=== PATIENT | female | born 1980 | race Caucasian/White ===

== ENCOUNTER → 2018-11-11 | Day surgery (SDC) | payer BC ==
[~2018-11-11] VITALS: Ht 175.3 cm; Wt 68.0 kg
[2018-11-11] VITALS (9 sets, daily range): BP systolic 128–146; BP diastolic 76–92
[~2018-11-11] MED LIST: BSS 15ml BTL ONE; BSS 500ml btl ONE; Bupivacaine 0.75% 30ml vial INJ ONE; Carbachol 0.01% Op Soln 1.5ml vial ONE; Cyclopentolate 1% Opth Sol 2ml LEFT EYE ONE; Cyclopentolate 1% Opth Sol 2ml ONE; Dexamethasone 4mg/ml vial ONE; DiphenhydrAMINE 50mg/ml Inj IVP PRN; EPINEPHrine 1mg/1ml Amp ONE; Goniotaire 2.5% Opth Soln - 15ml ONE; IMITREX50 MG ORAL; Kenalog-40 1ml Vial ONE; Ketorolac 30mg Inj ONE; LR 1000ml 1,000 ML IVLG SCH; LR 1000ml ONE; Lidocaine 1% MPF 10mg/ml 5ml ONE; Lidocaine 2% MPF 5ml Vial INJ ONE; Maxitrol Opth Oint 3.5gm ONE; Meperidine 50mg/ml Inj(FOR RIGORS ONLY) IV PRN; Metoclopramide 10mg/2ml Inj IVP PRN; Midazolam 2mg/2ml Inj ONE; NS Irrig 1000ml ONE; Neosporin Oph Soln 5ml Btl ONE; Phenylephrine 2.5% Op 2ml Soln LEFT EYE ONE; Phenylephrine 2.5% Op 2ml Soln ONE; Povidone-Iodine 5% opth solution ONE; Pred Forte 1% Opth Susp 1ml ONE; Proparacaine 0.5% Opth Soln 15ml LEFT EYE ONE; Proparacaine 0.5% Opth Soln 15ml ONE; Propofol 200mg/20ml IV ONE; Sodium Hyaluronate 10 mg/ml 0.85ml ONE; Sterile Water Irrig 1000ml IRRIG ONE; Tetracaine 0.5% Opth 4ml Soln ONE; TransDerm Scop 1mg/72HR Patch TDERMAL ONE; Tropicamide 1% Opth 15ml Soln LEFT EYE ONE; Tropicamide 1% Opth 15ml Soln ONE; acetaZOLAMIDE 500mg Inj ONE; fentaNYL 100 mcg/2 mL IV ONE
[2018-11-11 17:18] LABS: EOSINOPHILS % (AUTO) 0.4 % (0.0-3.0); HEMATOCRIT 44.4 % (37.0-47.0); HEMOGLOBIN 14.7 G/DL (12.0-16.0); LYMPHOCYTES % (AUTO) 15.3 % (20.0-45.0); MEAN CORPUSCULAR VOLUME 91 FL (80-99); MONOCYTES % (AUTO) 6.3 % (1.0-10.0); NEUTROPHILS % (AUTO) 77.1 % (45.0-75.0); PLATELET COUNT 300 K/UL (150-450); RED BLOOD COUNT 4.87 M/UL (4.20-5.40); RED CELL DISTRIBUTION WIDTH 11.2 % (11.6-14.8); WHITE BLOOD COUNT 9.7 K/UL (4.8-10.8)
[2018-11-11 17:29] LABS: ANION GAP 12 mmol/L (5-15); BLOOD UREA NITROGEN 10 mg/dL (7-18); CALCIUM 9.4 MG/DL (8.5-10.1); CARBON DIOXIDE 26 MMOL/L (21-32); CHLORIDE 104 MMOL/L (98-107); CREATININE 0.9 MG/DL (0.55-1.30); POTASSIUM 3.4 MMOL/L (3.5-5.1); SODIUM 142 MMOL/L (136-145)
--- NOTE | 2018-11-11 18:00 | NUR ---
ED Nurse Note: RADHA Wynn took patient downstairs for surgery. all belongings sent with patient. pre op checklist done
--- NOTE | 2018-11-11 18:14 | Emergency Room Report ---
History of Present Illness General Chief Complaint: General Complaint Source: Patient Present Illness HPI Patient presents emergency department today complaining of visual change in the left eye. Patient was recently diagnosed with an attachment on the left eye. She will underwent surgery unfortunately the surgery was unsuccessful. The retinal detachment appears to be not improving. Patient saw her hand mica plate layer today and was sent to the emergency department for further evaluation and possible emergency surgery. Patient denies any other injuries. No other complaints are noted. Symptoms noted to be [id number]. No other modifying factors. No other associated signs and symptoms. No other complaints were noted. Allergies: Coded Allergies: No Known Allergies (Unverified , 11/11/18) Patient History Past Medical History: none Past Surgical History: none Pertinent Family History: none Social History: Denies: smoking, alcohol use, drug use Reviewed Nursing Documentation: PMH: Agreed; PSxH: Agreed Nursing Documentation-PMH Past Medical History: No Stated History Review of Systems All Other Systems: negative except mentioned in HPI Physical Exam Vital Signs Date Time Temp Pulse Resp B/P (MAP) Pulse Ox O2 Delivery O2 Flow Rate FiO2 11/11/18 16:37 98.4 88 17 141/86 98 Room Air Sp02 EP Interpretation: reviewed, normal General Appearance: normal inspection, well appearing, no apparent distress, alert Head: atraumatic Eyes: bilateral eye normal inspection, bilateral eye PERRL, bilateral eye EOMI ENT: normal ENT inspection, hearing grossly normal, normal voice Neck: normal inspection, full range of motion, supple, no bony tend Respiratory: normal inspection, lungs clear, normal breath sounds, no respiratory distress, no retraction, no wheezing Cardiovascular #1: regular rate, rhythm, no edema Gastrointestinal: normal inspection, normal bowel sounds, non tender, soft, no guarding, no hernia Genitourinary: no CVA tenderness Musculoskeletal: normal inspection, back normal, normal range of motion Neurologic: normal inspection, alert, responsive, speech normal Psychiatric: normal inspection, judgement/insight normal, mood/affect normal Skin: normal inspection, normal color, no rash Medical Decision Making Diagnostic Impression: Primary Impression: Retinal detachment ER Course Patient presents emergency department today complaining of left eye decreased vision. Differential considerations include retinal attachment, infectious process, glaucoma. Patient exam history is consistent with retinal detachment. Case was discussed with Dr. Parrish. He came to the emergency department evaluated patient. Patient will go to emergency surgery for treatment of retinal attachment. Labs Test 11/11/18 16:55 White Blood Count 9.7 K/UL (4.8-10.8) Red Blood Count 4.87 M/UL (4.20-5.40) Hemoglobin 14.7 G/DL (12.0-16.0) Hematocrit 44.4 % (37.0-47.0) Mean Corpuscular Volume 91 FL (80-99) Mean Corpuscular Hemoglobin 30.1 PG (27.0-31.0) Mean Corpuscular Hemoglobin Concent 33.0 G/DL (32.0-36.0) Red Cell Distribution Width 11.2 % (11.6-14.8) Platelet Count 300 K/UL (150-450) Mean Platelet Volume 7.4 FL (6.5-10.1) Neutrophils (%) (Auto) 77.1 % (45.0-75.0) Lymphocytes (%) (Auto) 15.3 % (20.0-45.0) Monocytes (%) (Auto) 6.3 % (1.0-10.0) Eosinophils (%) (Auto) 0.4 % (0.0-3.0) Basophils (%) (Auto) 1.0 % (0.0-2.0) Prothrombin Time 10.7 SEC (9.30-11.50) Prothromb Time International Ratio 1.0 (0.9-1.1) Activated Partial Thromboplast Time 25 SEC (23-33) Sodium Level 142 MMOL/L (136-145) Potassium Level 3.4 MMOL/L (3.5-5.1) Chloride Level 104 MMOL/L (98-107) Carbon Dioxide Level 26 MMOL/L (21-32) Anion Gap 12 mmol/L (5-15) Blood Urea Nitrogen 10 mg/dL (7-18) Creatinine 0.9 MG/DL (0.55-1.30) Estimat Glomerular Filtration Rate > 60 mL/min (>60) Glucose Level 108 MG/DL (74-106) Calcium Level 9.4 MG/DL (8.5-10.1) Last Vital Signs Date Time Temp Pulse Resp B/P (MAP) Pulse Ox O2 Delivery O2 Flow Rate FiO2 11/11/18 17:56 98.3 71 18 128/76 98 Room Air Status: improved Disposition: ADMITTED INPATIENT Condition: Stable Referrals: NON PHYSICIAN (PCP) Aldair Powell MD Nov 11, 2018 18:14
--- NOTE | 2018-11-11 18:28 | Pre-Procedure Note/Attestation ---
Pre-Procedure Note/Attestation Complete Prior to Procedure Planned Procedure: left Procedure Narrative: RD repair OS SB/Cryo/Gas OS Indications for Procedure Pre-Operative Diagnosis: RRD OS Attestation I attest that I discussed the nature of the procedure; its benefits; risks and complications; and alternatives (and the risks and benefits of such alternatives ), prior to the procedure, with the patient (or the patient's legal sales and service representative). I attest that, if there was a reasonable possibility of needing a blood transfusion, the patient (or the patient's legal sales and service representative) was given the [facility] standardized written summary, pursuant to the Ari Guerita Blood Safety Act ([place] Health and Safety Code # 1645, as amended). I attest that I re-evaluated the patient just prior to the surgery and that there has been no change in the patient's H&P, except as documented below: Armando Parrish M.D., MD Nov 11, 2018 18:28
--- NOTE | 2018-11-11 18:34 | Operative Note - PDOC ---
Operative Note Operative Note Pre-op Diagnosis: RRD OS Procedure: SB/Cryo/Gas OS (SF6) Post-op Diagnosis: Same Anesthesia: general Specimen: none Complications: none Condition: stable Estimated Blood Loss: minimal Drains: none Implant(s) used?: Yes - SB/Sleeve Indications for Procedure [place] [facility] [place] Diagnosis: Retinal detachment, macula-sparing, superotemporal, LEFT EYE Post-operative Diagnosis: Same Procedure: Scleral buckle (41 band, 72 sleeve), cryopexy, injection of SF6 gas (20%), LEFT EYE Surgeon: Armando Parrish M.D. Anesthesia: General anesthesia Complications: None Indications for the procedure: The patient has superior and progressive macula threatening retinal detachment and presents for urgent surgery after review of the risks, benefits, alternative and signing informed consent into the medical chart. Description of Procedure Procedure performed: The patient was met in the pre-op area where informed consent was reviewed. The operative eye was verified, marked and dilated. The patient was transferred to the operative suite, where cardiopulmonary monitoring was established and general anesthesia was administered without complications. The eye was prepped and draped in sterile ophthalmic fashion. A lid speculum was placed. Under direct visualization, the conjunctiva was opened and the quadrants were dissected. The rectus muscles were isolated and hooked with silk sutures. The quadrants were inspected and no scleral defects were noted. Cryopexy was applied to the areas of retinal tears; large temporal break and inferonasal small possible break; view through opacified 24/28D lens was limiting. The remainder of the breaks were adequately treated with laser previously. Then the 41 band was encircled around the globe with its ends attached in the superonasal quadrant with the 72 sleeve. The buckle was sutured to the sclera with 5-0 nylon sutures at 4mm posterior to the muscle insertions in all 4 quadrants. The buckle was pulled flush against the globe, then 10mm beyond flush; there was anterior migration of the buckle due to the 8-0 nylon suture. The anterior chamber was tapped to reduce the intraocular pressure. The optic nerve was notably well perfused. Visualization of the buckle indentation was adequate with support of the breaks; there was mild fish-mouth of the large break, but the buckle was not re-positioned rather an additional indentation element was placed radially. The buckle ends were trimmed. SF6 gas was injection in the nasal pars plana and repeat AC tap was performed. View of the gas bubble confirmed appropriate amount and location; optic nerve perfusion was confirmed. The eye maintained normal intraocular pressure. The stay sutures were removed, the conjunctiva was repositioned and closed with 5-0 plain gut sutures. Subconjunctival vancomycin and dexamethasone were administered. The lid speculum was removed. The eye was cleaned of prep and drape. Atropine drop and Maxitrol ointment was applied. A pressure patch was placed. The patient was turned over to the anesthesia team, extubated and transferred in stable condition to the PACU. Armando Parrish M.D., MD Nov 11, 2018 18:34
--- NOTE | 2018-11-11 19:00 | Anethesia Preoperative Eval ---
Anesthesia Pre-op PMH/ROS General Date of Evaluation: Nov 11, 2018 Time of Evaluation: 17:18 Anesthesiologist: Collins ASA Score: ASA 2 Mallampati Score Class I : Soft palate, uvula, fauces, pillars visible Class II: Soft palate, uvula, fauces visible Class III: Soft palate, base of uvula visible Class IV: Only hard plate visible Mallampati Classification: Class II Surgeon: Con Diagnosis: L eye retinal detouchment Surgical Procedure: L eye scleral buckle Anesthesia History: PONV Family History: no anesthesia problems Allergies: Coded Allergies: No Known Allergies (Unverified , 11/11/18) Medications: see eMAR Patient NPO?: Yes NPO Date: Nov 11, 2018 NPO Time: 09:00 Past Medical History Cardiovascular: Denies: HTN, CAD, ME, valve dz, arrhythmia, other Pulmonary: Denies: asthma, COPD, YOBANY, other Gastrointestinal/Genitourinary: Reports: GERD - mild; Denies: CRI, ESRD, other Neurologic/Psychiatric: Reports: other - migraine headacheks; Denies: dementia, CVA, depression/anxiety, TIA Endocrine: Denies: DM, hypothyroidism, steroids, other HEENT: Denies: cataract (L), cataract (R), glaucoma, [place] (L), [place] (R), other Hematology/Immune: Denies: anemia, DVT, bleeding disorder, other Musculoskeletal/Integumentary: Denies: OA, RA, DJD, DDD, edema, other PMH Narrative: as above PSxH Narrative: Dental Sx Anesthesia Pre-op Phys. Exam Physician Exam Last Vital Signs Date Time Temp Pulse Resp B/P (MAP) Pulse Ox O2 Delivery O2 Flow Rate FiO2 11/11/18 17:56 98.3 71 18 128/76 98 Room Air Constitutional: NAD Neurologic: CN 2-12 intact Cardiovascular: RRR, no M/R/G Respiratory: CTA Gastrointestinal: S/NT/ND Airway Exam Mallampati Score: Class II MO: full Neck: flexible ROM: full Teeth: intact Dentures: no upper, no lower Anesthesia Pre-op A/P Labs Hematology Test 11/11/18 16:55 White Blood Count 9.7 K/UL (4.8-10.8) Red Blood Count 4.87 M/UL (4.20-5.40) Hemoglobin 14.7 G/DL (12.0-16.0) Hematocrit 44.4 % (37.0-47.0) Mean Corpuscular Volume 91 FL (80-99) Mean Corpuscular Hemoglobin 30.1 PG (27.0-31.0) Mean Corpuscular Hemoglobin Concent 33.0 G/DL (32.0-36.0) Red Cell Distribution Width 11.2 % (11.6-14.8) L Platelet Count 300 K/UL (150-450) Mean Platelet Volume 7.4 FL (6.5-10.1) Neutrophils (%) (Auto) 77.1 % (45.0-75.0) H Lymphocytes (%) (Auto) 15.3 % (20.0-45.0) L Monocytes (%) (Auto) 6.3 % (1.0-10.0) Eosinophils (%) (Auto) 0.4 % (0.0-3.0) Basophils (%) (Auto) 1.0 % (0.0-2.0) Coagulation Test 11/11/18 16:55 Prothrombin Time 10.7 SEC (9.30-11.50) Prothromb Time International Ratio 1.0 (0.9-1.1) Activated Partial Thromboplast Time 25 SEC (23-33) Chemistry Test 11/11/18 16:55 Sodium Level 142 MMOL/L (136-145) Potassium Level 3.4 MMOL/L (3.5-5.1) L Chloride Level 104 MMOL/L (98-107) Carbon Dioxide Level 26 MMOL/L (21-32) Anion Gap 12 mmol/L (5-15) Blood Urea Nitrogen 10 mg/dL (7-18) Creatinine 0.9 MG/DL (0.55-1.30) Estimat Glomerular Filtration Rate > 60 mL/min (>60) Glucose Level 108 MG/DL (74-106) H Calcium Level 9.4 MG/DL (8.5-10.1) Studies Pre-op Studies: EKG - NSR Risk Assessment & Plan Assessment: ASA 2 Plan: GA with LMA PONV prevention Status Change Before Surgery: No Pre-Antibiotics Drug: none Jovani Guadalupe MD Nov 11, 2018 19:00
--- NOTE | 2018-11-11 20:59 | Immediate Post-Op Evaluation ---
Immediate Post-Op Evalulation Immediate Post-Op Evalulation Procedure: L eye scleral buckle, cryotherapy Date of Evaluation: Nov 11, 2018 Time of Evaluation: 20:57 IV Fluids: 600 Blood Products: none Estimated Blood Loss: min Urinary Output: none Blood Pressure Systolic: 136 Blood Pressure Diastolic: 72 Pulse Rate: 86 Respiratory Rate: 20 O2 Sat by Pulse Oximetry: 99 Temperature (Fahrenheit): 97.6 Pain Score (1-10): 1 Nausea: No Vomiting: No Complications none Patient Status: awake, patent, none Hydration Status: adequate Jovani Guadalupe MD Nov 11, 2018 20:59
--- NOTE | 2018-11-11 21:55 | NUR ---
DISCHARGE HOME FULLY AWAKE ALERT AMBULATORY . ADVICE TO KEEP FACE DOWN TO C[facility] OF EARTH AND TO SLEEP ON RT SIDE FACE DOWN TONITE PT UNDERSTOOD AND ACKNOWLEDGED. DISCHARGE INSTRUCTIONS GIVEN AND SIGNED UNDERSTOOD AND ACKNOWLEDGED . ALL BELONGINGS ACCOUNTED FOR . IV DCD DRESSING DRY AND INTACT NO C/O PAIN
== END | disposition home or self-care (01) ==
LOC: EDBEDREQ 17:00 → EMR 17:13 → SUR 17:50
DX: H33.22 Serous retinal detachment, left eye (principal); K21.9 Gastro-esophageal reflux disease without esophagitis
CPT/HCPCS: 36415; 67107; 80048; 85025; 85610; 85730; 93005; 99284; J1100; J1120; J1885; J2175; J2250; J2405; J2704; J2765; J3010; J3370; J3490; 94003; 94150

== ENCOUNTER 2018-11-25 09:16 | Day surgery (SDC) | payer BC ==
[2018-11-25] VITALS (8 sets, daily range): BP systolic 120–132; BP diastolic 68–81
[~2018-11-25] VITALS: Ht 177.8 cm; Wt 70.3 kg
[~2018-11-25 09:16] MED LIST changes: -BSS 15ml BTL ONE; -BSS 500ml btl ONE; -Bupivacaine 0.75% 30ml vial INJ ONE; -Carbachol 0.01% Op Soln 1.5ml vial ONE; -Cyclopentolate 1% Opth Sol 2ml LEFT EYE ONE; -Cyclopentolate 1% Opth Sol 2ml ONE; -Dexamethasone 4mg/ml vial ONE; -DiphenhydrAMINE 50mg/ml Inj IVP PRN; -EPINEPHrine 1mg/1ml Amp ONE; -Goniotaire 2.5% Opth Soln - 15ml ONE; -Kenalog-40 1ml Vial ONE; -Ketorolac 30mg Inj ONE; -LR 1000ml 1,000 ML IVLG SCH; -LR 1000ml ONE; -Lidocaine 1% MPF 10mg/ml 5ml ONE; -Lidocaine 2% MPF 5ml Vial INJ ONE; -Maxitrol Opth Oint 3.5gm ONE; -Meperidine 50mg/ml Inj(FOR RIGORS ONLY) IV PRN; -Metoclopramide 10mg/2ml Inj IVP PRN; -Midazolam 2mg/2ml Inj ONE; -NS Irrig 1000ml ONE; -Neosporin Oph Soln 5ml Btl ONE; -Phenylephrine 2.5% Op 2ml Soln LEFT EYE ONE; -Phenylephrine 2.5% Op 2ml Soln ONE; -Povidone-Iodine 5% opth solution ONE; -Pred Forte 1% Opth Susp 1ml ONE; -Proparacaine 0.5% Opth Soln 15ml LEFT EYE ONE; +Proparacaine 0.5% Opth Soln 15ml LEFT EYE SCH; -Proparacaine 0.5% Opth Soln 15ml ONE; -Propofol 200mg/20ml IV ONE; -Sodium Hyaluronate 10 mg/ml 0.85ml ONE; -Sterile Water Irrig 1000ml IRRIG ONE; -Tetracaine 0.5% Opth 4ml Soln ONE; -TransDerm Scop 1mg/72HR Patch TDERMAL ONE; -Tropicamide 1% Opth 15ml Soln LEFT EYE ONE; -Tropicamide 1% Opth 15ml Soln ONE; -acetaZOLAMIDE 500mg Inj ONE; -fentaNYL 100 mcg/2 mL IV ONE
[2018-11-25] MEDS ORDERED: Cyclopentolate 1% Opth Sol 2ml ONE (09:42)
[2018-11-25] MEDS ORDERED: Phenylephrine 2.5% Op 2ml Soln ONE (09:42)
[2018-11-25] MEDS ORDERED: Tropicamide 1% Opth 15ml Soln ONE (09:42)
[2018-11-25] MEDS ORDERED: Proparacaine 0.5% Opth Soln 15ml ONE (09:42)
[2018-11-25] MEDS: Tropicamide 1% Opth 15ml Soln LEFT EYE SCH ×3 (09:56→10:11)
[2018-11-25] MEDS: Cyclopentolate 1% Opth Sol 2ml LEFT EYE SCH ×3 (09:57→10:11)
[2018-11-25] MEDS: Phenylephrine 2.5% Op 2ml Soln LEFT EYE SCH ×3 (09:57→10:11)
[2018-11-25] MEDS ORDERED: MULTIVITAMINS1 EAC2 ORAL (10:00)
[2018-11-25] MEDS ORDERED: MAGNESIUM30 M1 PO (10:01)
[2018-11-25] MEDS ORDERED: Goniotaire 2.5% Opth Soln - 15ml ONE (10:43)
[2018-11-25] MEDS ORDERED: Maxitrol Opth Oint 3.5gm ONE (10:43)
[2018-11-25] MEDS ORDERED: Lidocaine 2% MPF 5ml Vial INJ ONE (10:43)
[2018-11-25] MEDS ORDERED: Pred Forte 1% Opth Susp 1ml ONE (10:43)
[2018-11-25] MEDS ORDERED: Kenalog-40 1ml Vial ONE (10:43)
[2018-11-25] MEDS ORDERED: BSS 15ml BTL ONE (10:44)
[2018-11-25] MEDS ORDERED: Tetracaine 0.5% Opth 4ml Soln ONE (10:44)
[2018-11-25] MEDS ORDERED: Acetylcholine Injection (OR) ONE (10:44)
[2018-11-25] MEDS ORDERED: BSS 500ml btl ONE (10:44)
[2018-11-25] MEDS ORDERED: Bupivacaine 0.75% 30ml vial INJ ONE (10:44)
[2018-11-25] MEDS ORDERED: Sodium Hyaluronate 14 mg/ml 0.85ml ONE (10:45)
[2018-11-25] MEDS ORDERED: EPINEPHrine 1mg/1ml Amp ONE (10:45)
[2018-11-25] MEDS ORDERED: Povidone-Iodine 5% opth solution ONE (10:46)
[2018-11-25] MEDS ORDERED: Dexamethasone 4mg/ml vial ONE (10:50)
[2018-11-25] MEDS ORDERED: Indocyanine Green 25mg Inj INJ ONE (11:00)
[2018-11-25] MEDS ORDERED: LR 1000ml 1,000 ML IVLG SCH ×2 (11:06)
[2018-11-25] MEDS ORDERED: Atropine Sulfate 0.4mg/ml inj IVP PRN ×2 (11:15)
[2018-11-25] MEDS ORDERED: HYDROcodone/Acetamin 7.5/325 tab ORAL PRN ×2 (11:15)
[2018-11-25] MEDS ORDERED: Metoclopramide 10mg/2ml Inj IVP PRN ×2 (11:15)
[2018-11-25] MEDS ORDERED: HYDROcodone/Acetamin 5/325 tab ORAL PRN ×2 (11:15)
[2018-11-25] MEDS ORDERED: Ketorolac 30mg Inj IV PRN ×4 (11:15)
[2018-11-25] MEDS ORDERED: DiphenhydrAMINE 50mg/ml Inj IVP PRN ×2 (11:15)
[2018-11-25] MEDS ORDERED: LORazepam Inj 2mg/ml 1ml IV PRN ×2 (11:15)
[2018-11-25] MEDS ORDERED: Midazolam 2mg/2ml Inj IVP PRN ×2 (11:15)
[2018-11-25] MEDS ORDERED: Hydromorphone 0.5mg/0.5ml inj IVP PRN ×2 (11:15)
[2018-11-25] MEDS ORDERED: Meperidine 50mg/ml Inj(FOR RIGORS ONLY) IVP PRN ×2 (11:15)
[2018-11-25] MEDS ORDERED: fentaNYL 100 mcg/2 mL IV PRN ×2 (11:15)
[2018-11-25] MEDS ORDERED: Labetalol 5mg/ml 20ml vial IV PRN ×2 (11:15)
[2018-11-25] MEDS ORDERED: oxyCODONE HCL/Acetaminophen 5/325mg ORAL PRN ×2 (11:15)
[2018-11-25] MEDS ORDERED: TransDerm Scop 1mg/72HR Patch TDERMAL ONE (11:20)
[2018-11-25] MEDS ORDERED: Lidocaine 1% Plain 30 ml INJ ONE ×2 (11:26→12:13)
--- NOTE | 2018-11-25 11:34 | Pre-Procedure Note/Attestation ---
Pre-Procedure Note/Attestation Complete Prior to Procedure Planned Procedure: left Procedure Narrative: Recurrent inferior detachment, OS Plan for PPV/EL/Gas OS Indications for Procedure Pre-Operative Diagnosis: RRD OS Attestation I attest that I discussed the nature of the procedure; its benefits; risks and complications; and alternatives (and the risks and benefits of such alternatives ), prior to the procedure, with the patient (or the patient's legal customer relations representative). I attest that, if there was a reasonable possibility of needing a blood transfusion, the patient (or the patient's legal customer relations representative) was given the [facility] standardized written summary, pursuant to the Ari Guerita Blood Safety Act ([place] Health and Safety Code # 1645, as amended). I attest that I re-evaluated the patient just prior to the surgery and that there has been no change in the patient's H&P, except as documented below: Armando Parrish M.D., MD Nov 25, 2018 11:34
--- NOTE | 2018-11-25 11:56 | Anethesia Preoperative Eval ---
Anesthesia Pre-op PMH/ROS General Date of Evaluation: Nov 25, 2018 Time of Evaluation: 11:21 Anesthesiologist: Dewayne ASA Score: ASA 2 Mallampati Score Class I : Soft palate, uvula, fauces, pillars visible Class II: Soft palate, uvula, fauces visible Class III: Soft palate, base of uvula visible Class IV: Only hard plate visible Mallampati Classification: Class II Surgeon: Shivani Diagnosis: Retinal Detachment OS Surgical Procedure: Vitrectomy OS Anesthesia History: PONV Family History: no anesthesia problems Allergies: Coded Allergies: No Known Allergies (Unverified , 11/25/18) Medications: see eMAR Patient NPO?: Yes Past Medical History Gastrointestinal/Genitourinary: Reports: GERD, other - Cyst R Ovary Neurologic/Psychiatric: Reports: other - Miranes HEENT: Reports: other - Scleral Buckle OS PSxH Narrative: Scleral Buckle Anesthesia Pre-op Phys. Exam Physician Exam Last Vital Signs Date Time Temp Pulse Resp B/P (MAP) Pulse Ox O2 Delivery O2 Flow Rate FiO2 11/25/18 10:15 Room Air 11/25/18 10:08 98.6 85 14 128/79 98 Constitutional: NAD Neurologic: CN 2-12 intact Cardiovascular: RRR Respiratory: CTA Gastrointestinal: S/NT/ND Airway Exam Mallampati Score: Class II MO: full ROM: full Teeth: intact Anesthesia Pre-op A/P Labs Urine Test Test 11/25/18 09:30 Urine HCG, Qualitative Negative (NEGATIVE) Risk Assessment & Plan Assessment: ASA 2 Plan: GA Status Change Before Surgery: No Adonay Buchanan MD Nov 25, 2018 11:56
--- NOTE | 2018-11-25 11:56 | Immediate Post-Op Evaluation ---
Immediate Post-Op Evalulation Immediate Post-Op Evalulation Procedure: Vitrectomy OS Date of Evaluation: Nov 25, 2018 Time of Evaluation: 13:04 IV Fluids: 500 LR Blood Products: 0 Estimated Blood Loss: 1 Urinary Output: 0 Blood Pressure Systolic: 126 Blood Pressure Diastolic: 74 Pulse Rate: 87 Respiratory Rate: 16 O2 Sat by Pulse Oximetry: 99 Temperature (Fahrenheit): 97.3 Pain Score (1-10): 1 Nausea: No Vomiting: No Complications 0 Patient Status: awake, reacts, patent, none Hydration Status: adequate Adonay Buchanan MD Nov 25, 2018 11:56
--- NOTE | 2018-11-25 11:59 | 48 Hour Post Anesthesia Eval ---
Post Anesthesia Evaluation Procedure: Vitrectomy OS Date of Evaluation: Nov 25, 2018 Time of Evaluation: 15:12 Blood Pressure Systolic: 124 0: 73 Pulse Rate: 86 Respiratory Rate: 18 Temperature (Fahrenheit): 98.2 O2 Sat by Pulse Oximetry: 99 Airway: patent Nausea: No Vomiting: No Pain Intensity: 1 Hydration Status: adequate Cardiopulmonary Status: Stable Mental Status/LOC: patient returned to baseline Follow-up Care/Observations: 0 Post-Anesthesia Complications: 0 Follow-up care needed: ready to discharge Adonay Buchanan MD Nov 25, 2018 11:59
[2018-11-25] MEDS ORDERED: SUMAtriptan 6mg/0.5ml Inj SUBQ ONE (12:00)
[2018-11-25] MEDS ORDERED: Propofol 200mg/20ml IV ONE (12:13)
--- NOTE | 2018-11-26 16:04 | Operative Note - PDOC ---
Operative Note Operative Note Pre-op Diagnosis: Pre-operative Diagnosis: 1. New onset inferior retinal detachment, LEFT EYE Procedure: Procedure: Pars plana vitrectomy, air-fluid exchange, endolaser, LEFT EYE Post-op Diagnosis: same Surgeon: Shivani Anesthesia: local Specimen: none Complications: none Condition: stable Estimated Blood Loss: minimal Drains: none Implant(s) used?: No Indications for Procedure Indications for the procedure: The patient has vision loss due floaters and new onset retinal tear with detachment inferior following successful repair of superior detachment. She presents today for surgery after review of the risks, benefits, alternative and signing informed consent into the medical chart. Description of Procedure Procedure performed: The patient was met in the pre-operative area where informed consent was reviewed. The operative eye was verified, marked and dilated. The patient was transferred to the operative suite, where cardiopulmonary monitoring was established and retrobulbar anesthetic was administered without complications. The eye was prepped and draped in sterile ophthalmic fashion. Under microscope visualization the 23 gauge infusion line was placed 4 millimeters inferotemporally. After visualization of the tip in the vitreous cavity, the infusion line was turned on. The superotemporal and superonasal cannulas were placed. Under BIOM visualization, peripheral and core vitrectomy was performed. The vitreous was stained to ensure complete PVD; there was complete detachment of the posterior hyloid and no PVR was noted. The vitreous was trimmed off the new tear at 6 oclock. The previously treated tear at 7 was trimmed. Further peripheral vitrectomy was performed and there were no new tears elsewhere. Inspection of the periphery revealed no iatrogenic breaks. Air fluid exchange was performed and fluid was drained from the break. Endolaser was applied to the new break at 6 and reinforced around the cryo at 7. SF6 gas was infused into the eye. The cannulas were removed. The eye maintained normal intraocular pressure. Subconjunctival vancomycin and dexamethasone were administered. The lid speculum was removed. The eye was cleaned of prep and drape. Atropine drop and Maxitrol ointment was applied. A pressure patch was placed. The patient was turned over to the anesthesia team and transferred in stable condition to the PACU. Armando Parrish M.D., MD Nov 26, 2018 16:04
--- NOTE | 2018-11-27 19:15 | Pre-op HX & Phy Repo 2 SIG ---
DATE OF ADMISSION: 11/25/2018 PRESURGICAL INTERNAL MEDICINE HISTORY AND PHYSICAL: REASON FOR EVALUATION: I was asked by Dr. Xander Contreras to see this 38-year-old female, who is going for elective surgery on the left eye. The patient was evaluated. Chart was reviewed. The patient has a detachment retina of the left eye. Please see Dr. Xander Contreras' History And physical. PAST MEDICAL HISTORY/REVIEW OF SYSTEMS: Remarkable for migraine headache. No history of high blood pressure or stroke. No history of respiratory problem, asthma, or bronchitis. Denies history of heart attack, chest pain, or palpitation. No history of thyroid problem. No history of GI bleeding or heartburn. SURGICAL HISTORY: Some dental procedure and 2 weeks ago, surgery on the left eye. FAMILY HISTORY: Both parents are alive and well. ALLERGIES: Not known. PRESENT MEDICATION: Imitrex. HABITS: Denies history of smoking. Alcohol occasional and occasional marijuana. PHYSICAL EXAMINATION: GENERAL: Alert, well-developed, well-nourished female in her 30s. VITAL SIGNS: Blood pressure 128/79, temperature 98.6, pulse 85 regular, respirations 18, O2 saturation 98% on room air. SKIN: Clear and warm. No rashes. No open wound. LYMPH NODES: Not enlarged. HEENT: Head normocephalic. Ears clear. No discharge. Eyes, full description per Dr. Parrish. Mouth, clear and moist. No dentures. NECK: Supple. No jugular venous distention. Carotids artery +2. Trachea midline. CHEST: No deformity or asymmetry. LUNGS: Clear to auscultation and percussion. No rales or rhonchi. ABDOMEN: Soft and benign. Liver and spleen not enlarged. EXTREMITIES: No peripheral edema. No varicose vein. No calf tenderness. NEUROLOGIC: No asymmetry. No tremor. No nystagmus. Electrocardiogram sinus rhythm, 69 per minute, normal ECG. LAB WORK: White blood cells 9.7, hemoglobin 14.3, hematocrit 44.4. Sodium 142, potassium 3.4, BUN 10, creatinine 0.9. The patient did not eat or drink from 11 p.m. last night. IMPRESSION: 1. Retinal detachment, left eye. 2. Migraine headache. PLAN: Pars plana vitrectomy, membrane peel, air-fluid exchange, per Dr. Parrish. CONCLUSION: The patient is a 38-year-old female. Vital signs stable. EKG is normal. The patient did not eat or drink from last night. The patient's condition optimized for surgery. Thank you very much, Dr. Parrish, for privilege to participate in presurgical care of this interesting patient. Jo Ann Jackson M.D. DR: SYEDA JOB#: [id number] CC:
== END 2018-11-25 14:15 | disposition home or self-care (01) ==
LOC: SUR 09:16
DX: H33.22 Serous retinal detachment, left eye (principal); G43.909 Migraine, unspecified, not intractable, without status migrainosus; K21.9 Gastro-esophageal reflux disease without esophagitis
CPT/HCPCS: 67040; 81025; J1100; J1885; J2001; J2250; J2704; J3030; J3301; J3370; J3490; 94003; 94150